=== PATIENT | female | born 1990 | race American Indian/Alaskan Native ===

== ENCOUNTER 2018-01-14 16:47 | Emergency (ER) | payer OTHER ==
--- NOTE | 2018-01-14 17:15 | Emergency Department Report ---
Kaylin Doc - Documentation Documentation: Patient is a 28-year-old female who is in the who is presenting after taking the Xanax. Patient states she was not trying to kill herself but took the pills because she is depressed and didn't want to deal with "the bull shit". Patient also has a recent history of some self- mutilation. Patient has some very superficial linear abrasions on the left wrist. These are "very superficial and according to the patient occurred 3 days ago. Patient states she is depressed but is not suicidal but she is exhibiting abnormal inappropriate behavior. Patient claims she knows if she was trying to kill herself she would've taken more than 2 Xanax. Patient will be taken to the main area for mental health evaluation.
[2018-01-14 17:39] LABS: HCG Qualitative,Urine Negative (Negative)
[2018-01-14 17:47] LABS: Amphetamine Screen,Urine PRESUMPTIVE NEGATIVE; Cannabinoid Screen,Urine PRESUMPTIVE NEGATIVE; Cocaine Screen,Urine PRESUMPTIVE NEGATIVE; Methadone Screen,Urine PRESUMPTIVE NEGATIVE; Opiate Screen,Urine PRESUMPTIVE NEGATIVE
[2018-01-14 18:04] LABS: Benzodiazepines Screen,Urine PRESUMPTIVE POSITIVE
[2018-01-14 18:57] LABS: Alanine Aminotransferase 9 units/L (7-56); Albumin 4.4 g/dL (3.9-5); BUN/Creatinine Ratio 10; Blood Urea Nitrogen 6 mg/dL (7-17); Hemolysis Index 5
[2018-01-14 20:22] VITALS: BP 106/67
--- NOTE | 2018-01-14 22:22 | Emergency Department Report ---
HPI - General Chief Complaint: Medical Clearance Time Seen by Provider: 01/14/18 17:13 - HPI HPI: The patient is a 28 over female presents for evaluation of mental health. The patient reports 1d of moderate in severity anxiousness and stress due to stress from supervisors at her job with the . She states that she consumed one to 2 tablets of Xanax to help her rest earlier today she states that she was not attempting to harm herself by taking the Xanax tablets. The patient denies fever, headache, unexplained weight loss or weight gain, heat or cold intolerance, skin, hair, or nail changes, neuro deficits, suicidal ideations, homicidal ideations, or auditory or visual hallucinations. ED Past Medical Hx - Past Medical History Previous Medical History?: No - Surgical History Past Surgical History?: No - Social History Smoking Status: Current Every Day Smoker Substance Use Type: None ED Review of Systems ROS: Stated complaint: POSSIBLE OVERDOSE Other details as noted in HPI Constitutional: denies: fever ENT: denies: throat or neck pain Respiratory: denies: cough, shortness of breath Cardiovascular: denies: chest pain Endocrine: denies unexplained weight loss or gain Gastrointestinal: denies: abdominal pain, nausea Genitourinary: denies: dysuria Musculoskeletal: denies: leg swelling Skin: denies: rash Neurological: denies: headache Hematological/Lymphatic: denies: easy bleeding or easy bruising Psych: reports sadness denies hopelessness Physical Exam - Physical Exam Vital Signs: Vital Signs 01/14/18 01/14/18 01/14/18 16:55 17:41 20:21 Temperature 98.6 F 98.4 F Pulse Rate 91 H 68 Respiratory 16 18 18 Rate Blood Pressure 124/72 Blood Pressure 106/67 [Left] O2 Sat by Pulse 100 99 100 Oximetry Physical Exam: General: well-nourished, well-developed, no acute distress Head: Normocephalic, atraumatic Eyes: normal sclera ENT: Mucous membranes are pink and moist Neck: trachea midline, neck supple, No neck stiffness, no cervical adenopathy Respiratory: Breath sounds equal bilaterally, no wheezing, rales, or rhonchi Cardio: S1 and S2 present, no murmurs, rubs, gallops, capillary refill is brisk Abdomen: Normoactive bowel sounds, soft abdomen, no rigidity, no guarding or rebound tenderness Musc: No pitting edema Skin: No rash Neuro: no facial drooping, normal speech Psych: Normal affect, normal insight, depressed mood, no suicidal or homicidal ideation, no hallucinations ED Course Vital Signs 01/14/18 01/14/18 01/14/18 16:55 17:41 20:21 Temperature 98.6 F 98.4 F Pulse Rate 91 H 68 Respiratory 16 18 18 Rate Blood Pressure 124/72 Blood Pressure 106/67 [Left] O2 Sat by Pulse 100 99 100 Oximetry ED Medical Decision Making - Lab Data Result diagrams: 01/14/18 18:05 - Medical Decision Making The patient was seen and examined by myself. The patient is placed on a environmental monitoring technician and continuous pulse ox. On initial evaluation, the patient was found to be in no distress. Labs are obtained. Lab results are grossly unremarkable. The patient is medically clear. Mental health is consulted. Mental health evaluates the patient and agrees that the patient is negative for findings concerning for risk of harm to herself or others. Patient is also able to care for herself. The patient is stable for discharge and outpatient follow-up. The patient is discharged with resources to assist with her stress and mild depression. Critical care attestation.: If time is entered above; I have spent that time in minutes in the direct care of this critically ill patient, excluding procedure time. ED Disposition Clinical Impression: Depressed mood, Stress and adjustment reaction Disposition: DC-01 TO HOME OR SELFCARE Is pt being admited?: No Does the pt Need Aspirin: No Condition: Stable Instructions: Stress (ED), Depression (ED) Referrals: PRIMARY CARE, [Primary Care Provider] - 3-5 Days [facility] [Outside] - 3-5 Days Time of Disposition: 22:24
== END 2018-01-14 23:37 | disposition home or self-care (01) ==
LOC: ED 16:47
DX: F43.21 Adjustment disorder with depressed mood (principal); F17.200 Nicotine dependence, unspecified, uncomplicated; Z79.899 Other long term (current) drug therapy
CPT/HCPCS: 36415; 80048; 80053; 80307; 81025; 99284; G0480; 80320